=== PATIENT | female | born 1965 | race Caucasian/White ===

== ENCOUNTER 2016-10-14 17:28 | Emergency (ER) | payer MEDICARE, OTHER ==
[~2016-10-14] VITALS: Ht 170.2 cm; Wt 55.0 kg
[~2016-10-14 17:28] MED LIST: ABIL5TAB6 PO; AMOX500T PO; CARB200; DEPA500T PO; DIME240C; ERGO2000 PO; FURO20TA PO; METH500T3 PO; POTA10TA2 PO; PREG25 PO; STOO100C PO
[2016-10-14 17:30] VITALS: BP 149/70; PULSE 88; RESP 17; TEMP 97.8; O2SAT 100
[2016-10-14] MEDS ORDERED: TEGR200T PO (18:08)
[2016-10-14] MEDS ORDERED: TERI7TAB PO (18:09)
--- NOTE | 2016-10-14 18:36 | PD ---
HPI Chief Complaint: Medical Clearance Time Seen by Provider: 18:23 Travel History International Travel<30 days: No Contact w/Intl Traveler<30days: No Traveled to known affect area: No History of Present Illness HPI 51-year-old female presents to the emergency Department with complaint of auditory hallucinations and requesting to see a psychiatrist. She is on medications for bipolar disorder and says that she wants to see a psychiatrist so they can help her with the problem and get rid of the hallucinations. She has been taking her medications as prescribed and does not want her medications altered. She denies visual hallucinations. Denies suicidal or homicidal ideations. Her family is at the bedside with her and says that she has manic episodes where she gets very agitated. The family says they don't know she's actually been taking her medications as prescribed. The patient says she doesn' t think her medications are working for her because they are the generic brand. She has no emergent medical complaints. Denies chest pain, shortness of breath, abdominal pain, nausea, vomiting, fever, chills. She has no other medical complaints. No other modifying factors or associated signs and symptoms. History Past Medical Histgory Hx Cancer: No Social History Alcohol Use: Yes (occasionaly ) Tobacco Use: No Allergies-Medications (Allergen,Severity, Reaction): Coded Allergies: Demerol (Verified Allergy, Severe, SEVERE VOMITING, 03/18/16) Reported Meds & Prescriptions Reported Meds & Active Scripts Active Reported Aubagio (Teriflunomide) 7 Mg Tab 7 Mg PO DAILY Tegretol (Carbamazepine) 200 Mg Tab 600 Mg PO BID Abilify 5 mg (Aripiprazole) 5 Mg Tab 30 Mg PO DAILY Depakote Delayed-Release (Divalproex Sodium) 500 Mg Tabec 1,000 Mg PO HS Review of Systems Except as stated in HPI: all other systems reviewed are Neg Physical Exam Narrative GENERAL: Well-nourished, well-developed female patient, in no acute distress SKIN: Warm and dry. HEAD: Atraumatic. Normocephalic. EYES: Pupils equal and round. No scleral icterus. No injection or drainage. ENT: Mucosa pink and moist. Airway patent. NECK: Trachea midline. CARDIOVASCULAR: Regular rate. RESPIRATORY: No accessory muscle use. GASTROINTESTINAL: Flat. MUSCULOSKELETAL: No obvious deformities. No clubbing. No cyanosis. No edema. NEUROLOGICAL: Awake and alert. Oriented 3. No obvious cranial nerve deficits. Motor grossly within normal limits. Normal speech. PSYCHIATRIC: Appropriate mood and affect; insight and judgment normal. Data Data Last Documented VS Vital Signs Date Time Temp Pulse Resp B/P Pulse Ox O2 Delivery O2 Flow Rate FiO2 10/14/16 17:30 97.8 88 17 149/70 100 MDM Medical Screen Exam Complete: Yes Emergency Medical Condition: No Differential Diagnosis Bipolar disorder, medical clearance, psych screening Narrative Course 51-year-old female presents with auditory hallucinations and bipolar disorder requesting to speak with a psychiatrist. She is currently on medications and reports taking them as prescribed. She says Just wants the voices to go away. The family is at the bedside with her and say that this is an ongoing problem and she has manic episodes. She denies suicidal or homicidal ideations. The patient has no other medical complaints. I discussed voluntary admission for psych evaluation and the patient declined this time. The patient was provided outpatient resources for follow-up. Vital signs are stable and the patient is stable for outpatient follow-up and treatment. The patient has no urgent or emergent medical complaints. There is no emergent or urgent medical need at this time. I instructed the patient to follow up with their primary care provider. A medical screening exam was performed: At the time of evaluation the presenting medical condition was determined not to be of an emergent nature. The patient was given the option of receiving additional care, but declined. Patient was given options for additional community resources from which to obtain care. The Patient Has Been advised to seek medical attention for their presenting complaint. The patient has been advised to return to the ER at any time if an emergent condition develops. Primary Impression: Encounter for medical screening examination Condition: Stable Debbi Martinez [facility] Oct 14, 2016 18:36
== END 2016-10-14 18:46 | disposition left against medical advice (07) ==
LOC: NEPK 17:28
DX: R44.0 Auditory hallucinations (principal); F31.9 Bipolar disorder, unspecified
CPT/HCPCS: 99281